=== PATIENT | male | born 1995 | race Two or more races ===

== ENCOUNTER 2018-03-16 10:51 | Day surgery (SDC) | payer SELFPAY ==
[~2018-03-16 10:51] MED LIST: CEFAZOLIN 1 GM/D5W RTU 1 GM/50 ML RTUPB IV PRN
[2018-03-16 12:06] LABS: HEMATOCRIT 43.8 % (37.9-51.0); HEMOGLOBIN 15.5 g/dL (13.5-17.0); MEAN CORPUSCULAR HEMOGLOBIN 30.7 pg (27.0-33.4); MEAN CORPUSCULAR HGB CONC 35.5 g/dL (32.0-36.0); MEAN CORPUSCULAR VOLUME 87 fl (80-97); PLATELET COUNT 240 10^3/uL (150-450); RED BLOOD COUNT 5.05 10^6/uL (4.35-5.55); RED CELL DISTRIBUTION WIDTH 12.2 % (11.5-14.0); WHITE BLOOD COUNT 6.4 10^3/uL (4.0-10.5)
[2018-03-16] MEDS ORDERED: LIDOCAINE 1% INJ-PF (10 MG/ML) 30 ML SDV ONE (14:10)
[2018-03-16] MEDS ORDERED: FENTANYL CITRATE INJ/PF 100 MCG/2 ML AMPUL ONE (15:16)
[2018-03-16] MEDS ORDERED: ONDANSETRON HCL INJ/PF 4 MG/2 ML SDV ONE (15:17)
[2018-03-16] MEDS ORDERED: PROPOFOL INJ 200 MG/20 ML VIAL IV ONE (15:17)
[2018-03-16] MEDS ORDERED: MIDAZOLAM 2 MG/2 ML INJ ONE (15:17)
[2018-03-16] MEDS ORDERED: DIPHENHYDRAMINE HCL 50 MG/ML VIAL IV PRN (15:55)
[2018-03-16] MEDS ORDERED: MEPERIDINE HCL/PF INJ 25 MG/1 ML DISP.SYRIN IV PRN (15:55)
[2018-03-16] MEDS ORDERED: FENTANYL CITRATE INJ/PF 100 MCG/2 ML AMPUL IV PRN ×3 (15:55)
[2018-03-16] MEDS ORDERED: PROMETHAZINE HCL INJ 25 MG/1 ML VIAL IV PRN (15:55)
[2018-03-16] MEDS ORDERED: MORPHINE SULFATE 10 MG/ML INJ IV PRN (15:55)
[2018-03-16] MEDS ORDERED: OXYCODONE-ACETAMINOPHEN 5-325 MG TABLET PO PRN (16:42)
--- NOTE | 2018-03-16 16:42 | Discharge Summary ---
Discharge Summary (SDC) - Discharge Final Diagnosis: sebaceous cyst of left shoulder Date of Surgery: 03/16/18 Discharge Date: 03/16/18 Condition: Stable Treatment or Instructions: WOUND CARE: 1) Do not get area wet for 48 hours. You may shower at that point, leaving steri strips (paper bandaids) intact. You may remove the outer dressing around the drain for the shower and then change daily after that. Warm water and soap may wash over the wound. Do not scrub. Pat dry. You may cover incision with gauze and tape if you like. 2) No swimming for 2 weeks. 3) Empty drain daily, measuring the output and recording measurements. PAIN MANAGEMENT: 1) You may take Toradol 10mg one pill by mouth every six hours as needed for pain. FOLLOW UP: 1) Follow up at [facility] in 7-10 days. Call clinic sooner with questions/concerns. Prescriptions: Ketorolac Tromethamine [Toradol 10 mg Tablet] 10 mg PO Q6HP PRN #20 tablet PRN Reason: Discharge Diet: As Tolerated Discharge Activity: No Lifting/Push/Pulling, Walk Frequently Report the Following to Your Physician Immediately: Increase in Pain, Fever over 101 Degrees, Unusual Bleeding, Redness, Swelling, Warmth, Increased Soreness, Drainage-Foul Smelling
[2018-03-16] MEDS ORDERED: KETOROLAC TROMETHAMINE INJ/PF 30 MG/1 ML SDV ONE (16:58)
[2018-03-16] MEDS ORDERED: ACETAMINOPHEN 1,000 MG/100 ML RTUPB IV ONE (16:59)
--- NOTE | 2018-03-16 17:02 | Operative Report ---
Operative Report DATE OF SURGERY: 03/16/18 PREOPERATIVE DIAGNOSIS: Large left scapular sebaceous cyst POSTOPERATIVE DIAGNOSIS: Same OPERATION: Complete excision of large left scapular sebaceous cyst SURGEON: JAMIR CISNEROS 1ST CLOTH SHRINKING TESTER: PHOEBE ENCISO ANESTHESIA: Moderate Sedation TISSUE REMOVED OR ALTERED: Sebaceous cyst and rind COMPLICATIONS: none ESTIMATED BLOOD LOSS: 75 cc INTRAOPERATIVE FINDINGS: See below PROCEDURE: The patient was taken from the preop holding her to the operating room and MAC anesthesia was induced. Patient was placed in a semi-recumbent position, left side up right side down. The patient was strapped into position. The left shoulder was prepped and draped in sterile fashion. Surgical plan surgical timeout conducted. The skin was Patricia times with 1% plain lidocaine. An elliptical incision was made approximately 1.5 x 5 cm in height in length, and entry was made directly into the sebaceous cyst. Using combination of blunt and suction dissection, the contents of the cyst were evacuated. We now embarked on complete excision of the cyst including the pericystic rind and this was accomplished using electrocautery and blunt dissection. The final cavity was much larger than the initial vertical incision length, approximately 10 cm in horizontal dimension and aid in vertical dimension. All of the inflammatory tissue and fibrosis were excised. This was all superficial to the muscle. The wound was irrigated several times, and small bleeders cauterized as encountered. We now placed large Selvin drain in the inferior skin flap, secured to the skin with a 2-0 Prolene suture, then closed wound with 2-0 Vicryl and 3-0 Ethilon suture. Compression dressing applied. Patient taught procedure well, taken to recovery in stable condition. The physician metal moulder's assistant, Ms. Edwards, provided assistance during this case by: Assisting with retracting tissue, instillation of local anesthesia and closure of skin incisions.
[2018-03-16] MEDS: OXYCODONE HCL IR 5 MG TABLET PO PRN (17:30)
[2018-03-16 18:29] VITALS: BP 118/66
== END 2018-03-16 18:33 | disposition home or self-care (01) ==
LOC: OROUT 10:51
PROVIDERS: ATTEND Surgery
DX: L72.0 Epidermal cyst (principal)
CPT/HCPCS: 36415; 85027; 88305 ×2; 23071; J2250; J0690; J3010; J3490; J1885; J2405; J2704; J0131; 300